=== PATIENT | female | born 1945 | race African-American/Black ===

== ENCOUNTER → 2018-10-07 | Day surgery (SDC) | payer MEDICARE, MEDICAID ==
[~2018-10-07] MED LIST: AMLO10TA80 PO; GABA-529 PO; GLUC-230 PO; INSLIS SUBCUT; INSU100I28 SQ; LIDOCAINE HCL 1% 20ML VIAL (Pyxis) INJ ONE; LINA145C PO; LINA5TAB PO; LOSA100T14 PO; NAPR500T7 PO; RANI150C12 PO; ROSU20TA29 PO; SODIUM BICARBONATE 4% (2.4MEQ) 5ML VIAL IV ONE
== END | disposition home or self-care (01) ==
LOC: RAD 10:25
PROVIDERS: ATTEND Internal Medicine
DX: E04.1 Nontoxic single thyroid nodule (principal)
CPT/HCPCS: 10005; 88172; 88173; J3490; 10022; 76942

== ENCOUNTER 2018-12-04 08:00 | Emergency (ER) | payer MEDICARE, MEDICAID ==
[~2018-12-04] VITALS: Ht 152.4 cm; Wt 82.0 kg
[~2018-12-04 08:00] MED LIST changes: -LIDOCAINE HCL 1% 20ML VIAL (Pyxis) INJ ONE; -SODIUM BICARBONATE 4% (2.4MEQ) 5ML VIAL IV ONE
[2018-12-04] MEDS ORDERED: LORAZEPAM 1MG TABLET PO ONE (09:00)
[2018-12-04 09:18] LABS: CLARITY URINE CLEAR (CLEAR); COLOR URINE YELLOW (YELLOW); KETONES URINE NEGATIVE (NEGATIVE); LEUKOCYTE ESTERASE URINE 2+ (NEGATIVE); NITRITE URINE NEGATIVE (NEGATIVE); OCCULT BLOOD URINE NEGATIVE (NEGATIVE); PROTEIN URINE NEGATIVE (NEGATIVE); SPECIFIC GRAVITY URINE 1.009 (1.005-1.030); UROBILINOGEN URINE 0.2 E.U./dL (0.2-1.0)
[2018-12-04 09:21] LABS: BASOPHILS % 0.6 % (0.0-2.0); EOSINOPHILS % 0.3 % (0.0-5.0); HEMATOCRIT. 47.4 % (36.0-48.0); HEMOGLOBIN. 15.6 g/dL (12.0-16.0); LYMPHOCYTES % 21.8 % (20.0-50.0); MEAN CORPUSCULAR HEMOGLOBIN 28.1 pg (28.0-32.0); MEAN CORPUSCULAR VOLUME 85.7 fL (81.0-99.0); MONOCYTES % 10.3 % (2.0-8.0); PLATELET 208 x1000/uL (130-400); RED BLOOD CELL COUNT 5.53 mill/uL (4.2-5.4); RED CELL DISTRIBUTION WIDTH 15.8 % (11.6-14.6)
[2018-12-04 09:27] LABS: CHLORIDE 105 mEq/L (98-107)
[2018-12-04] MEDS ORDERED: ONDANSETRON 4MG ODT PO ONE (10:30)
[2018-12-04 10:46] VITALS: BP 144/76
== END 2018-12-04 10:46 | disposition home or self-care (01) ==
LOC: ER 08:00
DX: G47.00 Insomnia, unspecified (principal); N39.0 Urinary tract infection, site not specified; E11.9 Type 2 diabetes mellitus without complications; I10 Essential (primary) hypertension; Z88.0 Allergy status to penicillin; Z79.4 Long term (current) use of insulin; Z90.710 Acquired absence of both cervix and uterus
CPT/HCPCS: 36415; 71045; 80053; 81003; 83880; 84443; 84484; 85025; 87086; 93005; 99284; Q0162

== ENCOUNTER 2019-04-23 08:54 | Emergency (ER) | payer MEDICARE, MEDICAID ==
[~2019-04-23] VITALS: Ht 152.4 cm; Wt 82.0 kg
[~2019-04-23 08:54] MED LIST changes: -LOSA100T14 PO; +LOSA100T32 PO
[2019-04-23] MEDS ORDERED: ONDANSETRON HCL 4MG/2ML INJ IV STA (09:21)
[2019-04-23] MEDS ORDERED: MORPHINE SULFATE 4 MG/ML CPJ (NOT FOR IM USE) IV STA (09:21)
[2019-04-23] MEDS ORDERED: SODIUM CHLORIDE 0.9% 500 ML IV ONE (09:21)
[2019-04-23 09:59] LABS: BASOPHILS % 0.7 % (0.0-2.0); EOSINOPHILS % 0.5 % (0.0-5.0); HEMATOCRIT. 46.5 % (36.0-48.0); HEMOGLOBIN. 16.1 g/dL (12.0-16.0); LYMPHOCYTES % 12.9 % (20.0-50.0); MEAN CORPUSCULAR HEMOGLOBIN 30.1 pg (28.0-32.0); MEAN PLATELET VOLUME 9.6 fl (7.4-10.4); MONOCYTES % 8.4 % (2.0-8.0); NEUTROPHILS % 77.5 % (40.0-76.0); PLATELET 189 x1000/uL (130-400); RED BLOOD CELL COUNT 5.35 mill/uL (4.2-5.4); RED CELL DISTRIBUTION WIDTH 14.7 % (11.6-14.6)
[2019-04-23 10:05] LABS: CHLORIDE 105 mEq/L (98-107)
[2019-04-23 10:07] LABS: PROTHROMBIN TIME 10.1 sec (9.6-11.0)
[2019-04-23 14:23] VITALS: BP 151/72
== END 2019-04-23 14:26 | disposition home or self-care (01) ==
LOC: ER 08:54
DX: S52.539A Colles' fracture of unspecified radius, initial encounter for closed fracture (principal); W06.XXXA Fall from bed, initial encounter; Y93.9 Activity, unspecified; Y92.9 Unspecified place or not applicable; M54.9 Dorsalgia, unspecified; E11.9 Type 2 diabetes mellitus without complications; I10 Essential (primary) hypertension; Z79.4 Long term (current) use of insulin; Z88.0 Allergy status to penicillin; Z90.710 Acquired absence of both cervix and uterus
CPT/HCPCS: 29125; 36415; 71045; 72100; 73030; 73080; 73090; 73130; 80053; 84484; 85025; 85610; 85730; 93005; 96374; 96375; 99284; J2270; J2405; J7040

== ENCOUNTER 2019-06-22 17:24 | Emergency (ER) | payer MEDICARE, MEDICAID ==
[~2019-06-22] VITALS: Ht 157.5 cm; Wt 73.0 kg
[2019-06-22] MEDS ORDERED: KETOROLAC 30MG/ML VIAL IM ONE (21:15)
[2019-06-22] MEDS ORDERED: MORPHINE SULFATE 10 MG/ML CPJ IM ONE (21:15)
[2019-06-22 23:30] VITALS: BP 138/61
== END 2019-06-22 23:56 | disposition home or self-care (01) ==
LOC: ER 17:56
DX: S42.294A Other nondisplaced fracture of upper end of right humerus, initial encounter for closed fracture (principal); E11.9 Type 2 diabetes mellitus without complications; E78.00 Pure hypercholesterolemia, unspecified; I10 Essential (primary) hypertension; Z79.4 Long term (current) use of insulin; Z88.0 Allergy status to penicillin; Z90.49 Acquired absence of other specified parts of digestive tract; Z90.710 Acquired absence of both cervix and uterus; W01.0XXA Fall on same level from slipping, tripping and stumbling without subsequent striking against object, initial encounter; Y93.89 Activity, other specified; Y92.014 Private driveway to single-family (private) house as the place of occurrence of the external cause
CPT/HCPCS: 71045; 73030; 73060; 96372; 99283; J1885; J2270; A4565